=== PATIENT | male | born 1965 | race African-American/Black ===

== ENCOUNTER 2019-04-14 16:45 | Emergency (ER) | payer OTHER ==
[2019-04-14 16:57] VITALS: BP 143/82
[2019-04-14] MEDS ORDERED: ASPIRIN 81 MG TABLET, CHEWABLE PO ONE (17:18)
--- NOTE | 2019-04-14 17:19 | ER Document Report ---
ED Medical Screen (RME) - General Chief Complaint: Chest Pain Stated Complaint: CHEST PAIN Time Seen by Provider: 04/14/19 17:14 Mode of Arrival: Ambulatory Information source: Patient Notes: Patient presents complaining of left-sided chest pain that is been off and on for the past 3 days that worsened today. Patient reports a heaviness like something sitting on his chest with shortness of breath and nausea. Patient denies any cough or cold symptoms. I have greeted and performed a rapid initial assessment of this patient. A comprehensive ED assessment and evaluation of the patient, analysis of test results and completion of the medical decision making process will be conducted by additional ED providers. TRAVEL OUTSIDE OF THE [place] IN LAST 30 DAYS: No - Related Data Allergies/Adverse Reactions: No Known Allergies Allergy (Verified 11/27/13 02:08) Past Medical History - Past Medical History Cardiac Medical History: Reports: Hx Hypercholesterolemia, Hx Pulmonary Embolism Denies: Hx Atrial Fibrillation, Hx Congestive Heart Failure, Hx Coronary Artery Disease, Hx Heart Attack, Hx Hypertension Pulmonary Medical History: Reports: Hx Asthma - albuteral inhaler prn, Hx Pneumonia Denies: Hx Bronchitis, Hx COPD, Hx Tuberculosis Neurological Medical History: Reports: Hx Migraine. Denies: Hx Cerebrovascular Accident, Hx Seizures Renal/ Medical History: Reports: Hx Renal Insufficiency Musculoskeltal Medical History: Denies Hx Arthritis, Reports Hx Gout Psychiatric Medical History: Reports: Hx Depression, Hx Post Traumatic Stress Disorder Denies: Hx Bipolar Disorder, Hx Schizophrenia Past Surgical History: Reports: Hx Cardiac Catheterization - 2009 - Immunizations Hx Diphtheria, Pertussis, Tetanus Vaccination: Yes Physical Exam - Vital signs Vitals: Temp Pulse Resp BP Pulse Ox 98 F 66 18 143/82 H 98 04/14/19 16:57 04/14/19 16:57 04/14/19 16:57 04/14/19 16:57 04/14/19 16:57 - General General appearance: Alert, Anxious - Cardiovascular Rhythm: Regular Heart sounds: S1 appreciated, S2 appreciated Course - Vital Signs Vital signs: Temp Pulse Resp BP Pulse Ox 98 F 66 18 143/82 H 98 04/14/19 16:57 04/14/19 16:57 04/14/19 16:57 04/14/19 16:57 04/14/19 16:57
--- NOTE | 2019-04-14 18:31 | RADIOLOGY REPORT (SQ) ---
EXAM DESCRIPTION: CHEST 2 VIEWS COMPLETED DATE/TIME: 04/14/2019 6:16 pm REASON FOR STUDY: cp COMPARISON: 10/21/2013 TECHNIQUE: Frontal and lateral radiographic views of the chest acquired. NUMBER OF VIEWS: Two view. LIMITATIONS: None. FINDINGS: LUNGS AND PLEURA: No pneumothorax. No consolidation or pleural effusion. MEDIASTINUM AND HILAR STRUCTURES: Stable. HEART AND VASCULAR STRUCTURES: Stable. BONES: No acute findings. HARDWARE: None in the chest. OTHER: No other significant finding. IMPRESSION: NO ACUTE FINDINGS. TECHNICAL DOCUMENTATION: JOB ID: [id number] [place]-72 2010 [email or web address]- All Rights Reserved Reading location - IP/workstation name: [email or web address]
[2019-04-14 18:49] LABS: ABSOLUTE EOSINOPHILS # (AUTO) 0.1 10^3/uL (0.0-0.6); ABSOLUTE LYMPHOCYTES (AUTO) 2.2 10^3/uL (0.5-4.7); ABSOLUTE MONOCYTES (AUTO) 0.3 10^3/uL (0.1-1.4); ABSOLUTE NEUT (AUTO) 1.5 10^3/uL (1.7-8.2); BASOPHILS % (AUTO) 0.8 % (0-2); EOSINOPHILS % (AUTO) 2.2 % (0-6); HEMATOCRIT 42.2 % (37.9-51.0); HEMOGLOBIN 13.9 g/dL (13.5-17.0); LYMPHOCYTES % (AUTO) 53.3 % (13-45); MEAN CORPUSCULAR HEMOGLOBIN 28.3 pg (27.0-33.4); MEAN CORPUSCULAR VOLUME 86 fl (80-97); MONOCYTES % (AUTO) 6.6 % (3-13); PLATELET COUNT 186 10^3/uL (150-450); RED BLOOD COUNT 4.93 10^6/uL (4.35-5.55); RED CELL DISTRIBUTION WIDTH 13.8 % (11.5-14.0); SEGMENTED NEUTROPHILS % (AUTO) 37.1 % (42-78); TOTAL CELLS COUNTED % (AUTO) 100 %; WHITE BLOOD COUNT 4.1 10^3/uL (4.0-10.5)
--- NOTE | 2019-04-14 19:16 | EKG REPORT ---
SEVERITY:- NORMAL ECG - SINUS RHYTHM : Confirmed by: Jen Daniel MD 14-Apr-2019 19:16:11
[2019-04-14 19:26] LABS: ALANINE AMINOTRANSFERASE 52 U/L (21-72); ALBUMIN 4.6 g/dL (3.5-5.0); ALKALINE PHOSPHATASE 116 U/L (38-126); ANION GAP 8 (5-19); ASPARTATE AMINO TRANSFERASE 35 U/L (17-59); BILIRUBIN,DIRECT 0.2 mg/dL (0.0-0.4); BILIRUBIN,TOTAL 0.4 mg/dL (0.2-1.3); BLOOD UREA NITROGEN 16 mg/dL (7-20); CALCIUM 9.6 mg/dL (8.4-10.2); CARBON DIOXIDE 27 mmol/L (22-30); CHLORIDE 107 mmol/L (98-107); GLUCOSE 84 mg/dL (75-110); POTASSIUM 4.5 mmol/L (3.6-5.0); SODIUM 141.5 mmol/L (137-145); TOTAL PROTEIN 7.8 g/dL (6.3-8.2)
== END 2019-04-14 22:00 | disposition left against medical advice (07) ==
LOC: ER 16:45
DX: R07.9 Chest pain, unspecified (principal); R11.0 Nausea; J45.909 Unspecified asthma, uncomplicated; R06.02 Shortness of breath; Z86.711 Personal history of pulmonary embolism; Z87.01 Personal history of pneumonia (recurrent); Z53.20 Procedure and treatment not carried out because of patient's decision for unspecified reasons
CPT/HCPCS: 36415; 71046; 80053; 84484; 85025; 93005; 93010; 99281

== ENCOUNTER 2020-02-27 05:50 | Emergency (ER) | payer OTHER, MEDICARE ==
[2020-02-27] MEDS ORDERED: ACETAMINOPHEN 325 MG TABLET PO ONE (06:37)
[2020-02-27] MEDS ORDERED: KETOROLAC TROMETHAMINE 60 MG/2 ML SDV IM ONE (08:49)
[2020-02-27] MEDS ORDERED: COLCHICINE 0.6 MG TABLET PO ONE (08:49)
--- NOTE | 2020-02-27 08:55 | ER Document Report ---
ED Extremity Problem, Lower - General Chief Complaint: Foot Pain Stated Complaint: RIGHT FOOT SWOLLEN Time Seen by Provider: 02/27/20 08:44 Primary Care Provider: ELIANA CARDONA MD [Primary Care Provider] - Follow up as needed Notes: CHIEF COMPLAINT: Right foot pain for 2 days HPI: 54-year-old male with history of prediabetes and gouty arthritis presenting with right foot pain at the base of the great toe for the last 2 days with swelling and redness. Patient states that he had been off of his allopurinol for the last several months, normally does well when he is on the allopurinol, states the pain and swelling is typical of what happens when he gets a gout flare. States he did fill his prescription for allopurinol yesterday and has restarted on the medication but is having increased pain to the foot. No fever ROS: See HPI - all other systems were reviewed and are otherwise negative Constitutional: no fever Integumentary: + rash Allergy: no hives Musculoskeletal: + extremity pain or swelling Neurological: no numbness/tingling, no weakness MEDICATIONS: I agree with the patient medications as charted by the RN. ALLERGIES: I agree with the allergies as charted by the RN. PAST MEDICAL HISTORY/PAST SURGICAL HISTORY: Reviewed and agree as charted by RN. SOCIAL HISTORY: Reviewed and agree as charted by RN. FAMILY HISTORY: No significant familial comorbid conditions directly related to patient complaint EXAM: Reviewed vital signs as charted by RN. CONSTITUTIONAL: Alert and oriented and responds appropriately to questions. Well-appearing; well-nourished HEAD: Normocephalic; atraumatic EYES: Conjunctivae clear, sclerae non-icteric ENT: normal nose; no rhinorrhea; moist mucous membranes NECK: Supple without meningismus CARD: symmetric distal pulses RESP: Normal chest excursion without splinting or tachypnea ABD/GI: non-distended BACK: The back appears normal EXT: Normal ROM in all joints; no cyanosis, no effusions, there is slight soft tissue swelling at the MTP region of the right foot base of the great toe with slight erythema and increased warmth to touch. There is some discomfort on palpation of this region. No fluctuance or induration. Dorsalis pedis and pos terior tibial pulses are present in the right foot and ankle. Sensation is intact in the toes with capillary refill less than 3 seconds SKIN: Normal color for age and race; warm; dry; good turgor NEURO: Moves all extremities equally; Motor and sensory function intact PSYCH: The patient's mood and manner are appropriate. Grooming and personal hygiene are appropriate. MDM: 54-year-old male with what appears to be a gouty arthropathy. History of same states it feels similar to prior episodes of gout. Has no fever. Will give colchicine and Toradol in the emergency department. Patient has done well on colchicine in the past will place him on colchicine, Indocin, short course of pain medication referral back to his PCP TRAVEL OUTSIDE OF THE [place] IN LAST 30 DAYS: No - Related Data Allergies/Adverse Reactions: No Known Allergies Allergy (Verified 02/27/20 06:31) Past Medical History - Social History Smoking Status: Former Smoker Frequency of alcohol use: None Drug Abuse: None Family History: Reviewed & Not Pertinent Patient has homicidal ideation: No - Past Medical History Cardiac Medical History: Reports: Hx Hypercholesterolemia, Hx Pulmonary Embolism Denies: Hx Atrial Fibrillation, Hx Congestive Heart Failure, Hx Coronary Artery Disease, Hx Heart Attack, Hx Hypertension Pulmonary Medical History: Reports: Hx Asthma - albuteral inhaler prn, Hx Pneumonia Denies: Hx Bronchitis, Hx COPD, Hx Tuberculosis Neurological Medical History: Reports: Hx Migraine. Denies: Hx Cerebrovascular Accident, Hx Seizures Renal/ Medical History: Reports: Hx Renal Insufficiency. Denies: Hx Peritoneal Dialysis Musculoskeletal Medical History: Denies Hx Arthritis, Reports Hx Gout Psychiatric Medical History: Reports: Hx Depression, Hx Post Traumatic Stress Disorder Denies: Hx Bipolar Disorder, Hx Schizophrenia Past Surgical History: Reports: Hx Cardiac Catheterization - 2009 - Immunizations Hx Diphtheria, Pertussis, Tetanus Vaccination: Yes Hx Pneumococcal Vaccination: 10/25/11 Physical Exam - Vital signs Vitals: Temp Pulse Resp BP Pulse Ox 97.2 F 66 15 135/74 H 100 02/27/20 06:30 02/27/20 06:30 02/27/20 06:30 02/27/20 06:30 02/27/20 06:30 Course - Vital Signs Vital signs: Temp Pulse Resp BP Pulse Ox 97.2 F 66 15 135/74 H 100 02/27/20 06:31 02/27/20 06:30 02/27/20 06:30 02/27/20 06:30 02/27/20 06:30 Discharge - Discharge Clinical Impression: Gout attack Qualifiers: Gout site: foot Gout etiology: unspecified cause Laterality: right Qualified Code(s): M10.9 - Gout, unspecified Condition: Stable Disposition: HOME, SELF-CARE Instructions: Gout Diet ([facility]), Gout ([facility]) Additional Instructions: Take the medications as prescribed no driving if taking narcotics for pain. You have been given the maximum daily dose of colchicine today in the emergency department start this medication tomorrow. Call your primary care provider to schedule close follow-up in the office for reevaluation and medications. If you have worsening swelling or develop a fever greater than 101 return for reevaluation Prescriptions: Colchicine 0.6 mg PO BID #10 capsule Indomethacin [Indocin 25 Mg Capsule] 25 mg PO TID #21 capsule Hydrocodone/Acetaminophen [[place] 5-325 mg Tablet] 1 tab PO Q4 PRN #15 tablet PRN Reason: Referrals: ELIANA CARDONA MD [Primary Care Provider] - Follow up as needed
[2020-02-27 09:39] VITALS: BP 143/78
== END 2020-02-27 09:39 | disposition home or self-care (01) ==
LOC: ER 05:50
DX: M10.9 Gout, unspecified (principal); J45.909 Unspecified asthma, uncomplicated; Z87.891 Personal history of nicotine dependence
CPT/HCPCS: 99283; J1885